=== PATIENT | female | born 1940 | race Two or more races ===

== ENCOUNTER → 2017-06-19 | Outpatient (CLI) | payer MEDICARE ==
--- NOTE | 2017-06-19 14:41 | Diagnostic Imaging Report ---
PROCEDURE:MANDIBLE COMP 4+VIEW TECHNIQUE:3 views of the mandible (AP, right lateral, left lateral) INDICATION:Gingivitis COMPARISON:None. FINDINGS: The patient is edentulous. No gross mandibular abnormality is identified. CONCLUSION: No gross mandibular abnormality identified. Consider dedicated dental radiographs for better evaluation. Dictated by: Berry Bustamante M.D. on 06/19/2017 at 14:42 Electronically approved by: Berry Bustamante M.D. on 06/19/2017 at 14:42
== END ==
LOC: RAD 11:48
PROVIDERS: ATTEND Family Medicine
DX: K05.01 Acute gingivitis, non-plaque induced (principal); K06.1 Gingival enlargement
CPT/HCPCS: 70110

== ENCOUNTER → 2017-10-30 | Outpatient (CLI) | payer MEDICARE ==
--- NOTE | 2017-10-31 08:30 | Diagnostic Imaging Report ---
EXAM: Thyroid Ultrasound INDICATION: \[id number] \S\[id number] \S\LOCALIZED SWELLING,MASS LUMP, NECK COMPARISON: None TECHNIQUE: Transverse and sagittal images were obtained of the thyroid gland. FINDINGS: Thyroid gland: Size: Right lobe: 4.9 x 2.0 x 1.5 cm, Normal in size Left lobe: 4.8 x 1.5 x 1.3 cm, Normal in size Isthmus: 0.6 cm, Normal in size Appearance: Homogeneous echotexture without increased vascularity Masses/Nodules: Right lobe: 0.9 x 0.6 x 0.7 cm mixed solid and cystic (1 pt) nodule in the interpolar region with smooth margin (0 pts), [id number] (0 pts), isoechoic (1 pt), and macrocalcifications (1 pt. TR3a (<1.5 cm): No follow-up. Left lobe: 0.8 x 0.6 x 0.7 cm mixed solid and cystic (1 pt) nodule in the interpolar region with ill-defined margin (0 pts), [id number] (0 pts), hypoechoic (2 pts), and no calcifications (0 pts). TR3a (<1.5 cm): No follow-up. Isthmus: 1.7 x 1.2 x 1.5 cm almost completely solid (2 pts) nodule in the isthmus with smooth margin (0 pts), [id number]-[id number] (0 pts), hypoechoic (2 pts), and macrocalcifications (1 pt). TR4c (>1.5 cm), Moderately Suspicious: FNA. Parathyroid: No focal parathyroid masses. IMPRESSION: 1. 1.7 cm complex, almost completely solid nodule in the isthmus corresponding to the painful palpable abnormality. This lesion contains hyperechoic foci suggesting calcifications, however, given the presence of pain, this may also represent sequela of recent hemorrhage. Recommend fine-needle aspiration for further evaluation. TR4c (>1.5 cm), Moderately Suspicious: FNA. 2. Other nodules in the right and left lobe do not require follow-up. TI-RADS Lexicon: TR1, Benign: No FNA TR2, Not Suspicious: No FNA. TR3a (<1.5 cm): No follow-up. TR3b (1.5-2.5 cm), Mildly Suspicious: Follow at 1, 3, 5 years. TR3c (>2.5 cm), Mildly Suspicious: FNA. TR4a (<1.0 cm): No follow-up. TR4b (1.0-1.5 cm), Moderately Suspicious: Follow at 1, 2, 3, 5 years. TR4c (>1.5 cm), Moderately Suspicious: FNA. TR5a (<0.5 cm): No follow-up. TR5b (0.5-1.0 cm), Highly Suspicious: Follow at 1, 2, 3, 4, 5 years. TR5c (>1.0 cm), Highly Suspicious: FNA. *Rebiopsy if new suspicious features *No recommendation at this time for significant interval growth. Nodule Characteristics: * Benign features: cystic, hyperechoic, comet-tail artifact, complete halo * Minor suspicious features: solid, hypoechoic, other calcifications * Major suspicious features: microcalcifications, marked hypoechoic (less than strap muscle), suspicious lymph nodes, taller than wide, lobulated or ill-defined margins. Literature: ACR Thyroid Imaging, Reporting and Data System (TI-RADS): White Paper of the ACR TI-RADS Committee. J Am Patsy Radiol 2017. Signed by: Dr. Maycol Buchanan M.D. on 10/31/2017 8:27 AM
== END ==
LOC: CT 11:26
PROVIDERS: ATTEND Family Medicine
DX: R22.1 Localized swelling, mass and lump, neck (principal)
CPT/HCPCS: 36415; 76536; 82948

== ENCOUNTER → 2018-01-05 | Outpatient (CLI) | payer MEDICARE ==
--- NOTE | 2018-01-05 11:37 | Diagnostic Imaging Report ---
History: Dizziness, giddiness Comparison studies: None Technique: Sagittal and axial T2 FS, axial DWI, axial T2*GRE, axial T1 FLAIR and axial coronal T2 FLAIR. Intravenous contrast: None Findings: Scalp: Normal in signal. No masses. Bone marrow: Normal in signal intensity. Brain sulci: Mildly prominent but age appropriate. Ventricles: Mild asymmetry of the lateral ventricles with the right lateral ventricle being slightly more prominent than the left which is nonspecific and may be an anatomical variant for this patient. Ventricles are otherwise normal in size and configuration. No hydrocephalus. Extra axial spaces: No mass, no fluid collection. Parenchyma: No mass, hemorrhage or acute ischemia. A few small T2 FLAIR hyperintense foci in the supratentorial white matter are nonspecific but most compatible with minimal chronic microvascular ischemic changes. Suprasellar region: No abnormalities. Craniocervical junction: Patent foramen magnum. No Chiari malformation. Vessels: Normal flow-voids in the arteries and sinuses. IMPRESSION: 1. Minimal age-appropriate cortical volume loss and chronic microvascular ischemic changes. 2. Otherwise, no significant intracranial abnormalities. Signed by: Dr. Horace Vanessa M.D. on 01/05/2018 11:34 AM
== END ==
LOC: MRI 08:38
PROVIDERS: ATTEND Family Medicine
DX: R42 Dizziness and giddiness (principal)
CPT/HCPCS: 70551; 93880

== ENCOUNTER → 2019-07-07 | Outpatient (CLI) | payer MEDICARE ==
--- NOTE | 2019-07-07 13:30 | Diagnostic Imaging Report ---
Solid-phase gastric emptying study Reason for examination: Generalized abdominal pain The protocol used for this study is based on the Consensus Recommendations for Gastric Scintigraphy by the [employer] and the Society of Nuclear [employer]. Clinical information: The patient is diabetic; blood sugar 132 mg/dL this morning. The patient has not had previous gastrointestinal surgery. The patient is not on any medications expected to affect gastric motility. The patient has been fasting for at least 6 hours prior to this exam. Radiopharmaceutical: Tc-99m sulfur colloid 1 mCi Report: The radiopharmaceutical was added to 1/2 cup egg whites that were then prepared and served with 2 pieces of white bread toasted, 30 grams of jam and 4 ounces of water. The patient took the meal orally without difficulty. Images were obtained of the abdomen in the anterior and posterior projections at 10 minutes post the meal and at 1, 2 and 3 hours. Uptake was determined from the geometric mean of the anterior and posterior counts and the counts were corrected for decay of the radiolabel. The percent gastric retention of the labeled meal at: 1 hour was 48% (normal 30-90%) 2 hours was 11% (normal <60%) 3 hours was 5% (normal <30%) 4 hour measurement not obtained because gastric retention was less than 10% at 3 hours. Impression: The pattern of gastric emptying is normal. Signed by: Dr. Rocío Carey M.D. on 07/07/2019 1:27 PM
== END ==
LOC: NM 07:41
PROVIDERS: ATTEND Family Medicine
DX: R10.84 Generalized abdominal pain (principal)
CPT/HCPCS: 78264; A9541

== ENCOUNTER → 2020-02-06 | Outpatient (CLI) | payer MEDICARE | LOC: US 12:58 | PROVIDERS: ATTEND Urology | DX: N30.20 Other chronic cystitis without hematuria (principal) | CPT/HCPCS: 76770; 76857 ==

== ENCOUNTER 2020-07-01 15:29 | Emergency (ER) | payer MEDICARE ==
[~2020-07-01] VITALS: Ht 157.5 cm; Wt 62.6 kg
[2020-07-01] MEDS ORDERED: HYDROCODONE/APAP 5MG-325MG TAB PO ONE (16:30)
[2020-07-01] MEDS ORDERED: DIAZEPAM 2 MG TAB PO ONE ×2 (16:30→17:30)
[2020-07-01] MEDS ORDERED: LIDOCAINE 4% PATCH TP ONE ×2 (17:30)
[2020-07-01] MEDS ORDERED: KETOROLAC TROMETHAMINE 60 MG/2 ML VIAL IM ONE (17:30)
[2020-07-01] MEDS ORDERED: DEXAMETHASONE SOD PHOS 10 MG/1 ML VIAL IM ONE (17:30)
[2020-07-01 18:18] VITALS: BP 158/59
== END 2020-07-01 18:20 | disposition home or self-care (01) ==
LOC: ER 16:07
DX: M54.12 Radiculopathy, cervical region (principal); I10 Essential (primary) hypertension; E11.9 Type 2 diabetes mellitus without complications; E78.5 Hyperlipidemia, unspecified; M06.9 Rheumatoid arthritis, unspecified; Z86.73 Personal history of transient ischemic attack (TIA), and cerebral infarction without residual deficits
CPT/HCPCS: 70450; 72125; 99283; J1100; J1885